=== PATIENT | female | born 1955 | race Caucasian/White ===

== ENCOUNTER 2016-12-23 11:38 | Outpatient (CLI) | payer OTHER | END 2016-12-23 11:39 | disposition home or self-care (01) | DRG 554 | LOC: CONVCARE 11:38 | PROVIDERS: ATTEND Orthopaedic Surgery | DX: M16.11 Unilateral primary osteoarthritis, right hip (principal) | CPT/HCPCS: 72170; 73501 ==

== ENCOUNTER 2017-01-13 05:25 | Inpatient (IN) | payer OTHER ==
[2017-01-13] MEDS ORDERED: LACTATED RINGERS 1,000 ML IV ONE (06:00)
[2017-01-13] MEDS ORDERED: SCOPOLAMINE 1.5MG PATCH TD SCH (06:00)
[2017-01-13] MEDS ORDERED: LACTATED RINGERS 1,000 ML IV SCH (07:00)
[2017-01-13] MEDS ORDERED: SODIUM CHLORIDE 20 ML 40 ML ONE (07:23)
[2017-01-13] MEDS ORDERED: BUPIVACAINE LIPOSOME 20 ML SUS ONE (07:23)
[2017-01-13] MEDS ORDERED: BUPIVACAINE HCL 0.25% MPF 10 ML SOL INFIL ONE (07:23)
[2017-01-13] MEDS ORDERED: DEXAMETHASONE 20 MG/5 ML (4 MG/ML SOL) ONE (07:26)
[2017-01-13] MEDS ORDERED: ONDANSETRON HCL 4 MG/2 ML SOL ONE (07:26)
[2017-01-13] MEDS ORDERED: PROPOFOL 500 MG/50 ML EMU IV ONE (07:26)
[2017-01-13] MEDS ORDERED: LIDOCAINE HCL 1% MPF SOL ONE (07:26)
[2017-01-13] MEDS ORDERED: MIDAZOLAM 2 MG/2 ML SOL ONE (07:27)
[2017-01-13] MEDS ORDERED: FENTANYL 100MCG/2ML SOL ONE (07:27)
[2017-01-13] MEDS ORDERED: KETAMINE HYDROCHLORIDE 50 MG/ML SOL ONE (07:27)
[2017-01-13] MEDS ORDERED: MORPHINE SULFATE 0.5 MG/ML SOL ONE (07:28)
[2017-01-13] MEDS ORDERED: CEFAZOLIN SODIUM 1 GM PDS ONE (07:35)
[2017-01-13] MEDS ORDERED: TRANEXAMIC ACID 100 MG/ML SOL ONE (07:57)
[2017-01-13] MEDS ORDERED: METOCLOPRAMIDE HYDROCHLORIDE 5 MG/ML SOL ONE (08:34)
[2017-01-13] MEDS ORDERED: EPHEDRINE SULFATE 50 MG/ML SOL ONE (08:52)
[2017-01-13] MEDS ORDERED: PROPOFOL 10 MG/ML EMU IV ONE ×3 (09:27→10:37)
[2017-01-13] MEDS ORDERED: PATIENT EDUCATION 1 MISC PRN (12:20)
[2017-01-13] MEDS ORDERED: ONDANSETRON HCL 4 MG/2 ML SOL IV PRN (13:34)
[2017-01-13] MEDS ORDERED: DIAZEPAM 5 MG TAB PO PRN (13:34)
[2017-01-13] MEDS ORDERED: ALUMINUM/MAGNESIUM 30 ML SUS PO PRN (13:34)
[2017-01-13] MEDS ORDERED: SODIUM CHLORIDE 0.9% 500 ML 500 ML IV PRN (13:34)
[2017-01-13] MEDS ORDERED: ONDANSETRON 4 MG ODT BU PRN (13:34)
[2017-01-13] MEDS ORDERED: FLEET ENEMA PR PRN (13:34)
[2017-01-13] MEDS ORDERED: ZOLPIDEM TARTRATE 5 MG TAB PO PRN (13:34)
[2017-01-13] MEDS ORDERED: MAGNESIUM HYDROXIDE 30 ML SUS PO PRN (13:34)
[2017-01-13] MEDS ORDERED: BISACODYL 10 MG SUP PR PRN (13:34)
[2017-01-13] MEDS ORDERED: DEXTROSE/SALINE 0.45/KCL 20MEQ 1,000 ML/1,000 ML SOL IV ONE (13:59)
[2017-01-13] MEDS ORDERED: HYDROMORPHONE 1 MG/ML SYRINGE IV PRN (14:00)
[2017-01-13] MEDS: DEXTROSE/SALINE 0.45/KCL 20MEQ 1,000 ML/1,000 ML SOL IV SCH (14:08)
[2017-01-13] MEDS: SODIUM CHLORIDE 0.9% FLUSH 10 ML SOL IV SCH ×2 (15:11→23:08)
[2017-01-13] MEDS: CEFAZOLIN (PREMIX) 1 GM 1 GM/50 ML SOL IV SCH (18:12)
[2017-01-13] MEDS: ACETAMINOPHEN 325 MG PO PRN ×2 (18:50→23:41)
[2017-01-13] MEDS: GABAPENTIN 300 MG CAP PO SCH (20:56)
[2017-01-13] MEDS: SENNOSIDES A AND B 8.6 MG TAB PO SCH (20:56)
[2017-01-14] MEDS: DEXTROSE/SALINE 0.45/KCL 20MEQ 1,000 ML/1,000 ML SOL IV SCH (01:02)
[2017-01-14] MEDS: CEFAZOLIN (PREMIX) 1 GM 1 GM/50 ML SOL IV SCH (01:07)
[2017-01-14] MEDS: SODIUM CHLORIDE 0.9% FLUSH 10 ML SOL IV SCH ×4 (05:13→22:27)
[2017-01-14] MEDS: LEVOTHYROXINE SODIUM 112 MCG TAB PO SCH (06:13)
[2017-01-14] MEDS: ACETAMINOPHEN 325 MG PO PRN (06:13)
[2017-01-14 07:24] LABS: MEAN CORPUSCULAR HGB CONC 34.4 gm/dl (32.0-36.0)
[2017-01-14] MEDS: GABAPENTIN 300 MG CAP PO SCH ×2 (08:53→20:43)
[2017-01-14] MEDS: RIVAROXABAN 10 MG TAB PO SCH (08:53)
[2017-01-14] MEDS: FERROUS SULFATE 325 MG TAB PO SCH (08:55)
[2017-01-14] MEDS: ACETAMINOPHEN 500 MG 500 MG TAB PO PRN ×2 (14:45→20:43)
[2017-01-14] MEDS: APAP/OXYCODONE 325/5 TAB PO PRN (15:16)
[2017-01-14 20:01] VITALS: O2SAT 95
[2017-01-14] MEDS: SENNOSIDES A AND B 8.6 MG TAB PO SCH (20:43)
[2017-01-15] MEDS: APAP/OXYCODONE 325/5 TAB PO PRN ×3 (00:12→15:54)
[2017-01-15] MEDS: SODIUM CHLORIDE 0.9% FLUSH 10 ML SOL IV SCH ×2 (06:14→14:25)
[2017-01-15] MEDS: LEVOTHYROXINE SODIUM 112 MCG TAB PO SCH (06:15)
[2017-01-15] MEDS: RIVAROXABAN 10 MG TAB PO SCH (09:16)
[2017-01-15] MEDS: GABAPENTIN 300 MG CAP PO SCH (09:16)
[2017-01-15] MEDS: FERROUS SULFATE 325 MG TAB PO SCH (09:27)
[2017-01-15] MEDS: ACETAMINOPHEN 500 MG 500 MG TAB PO PRN (09:30)
[2017-01-15 12:36] VITALS: BP 121/73; PULSE 84; RESP 18; TEMP 98.2
== END 2017-01-15 19:15 | disposition home or self-care (01) | DRG 470 ==
LOC: ACUTE CARE 05:25
PROVIDERS: ADMIT Orthopaedic Surgery; ATTEND Orthopaedic Surgery
PROC: F01ZDFZ Gait and/or Balance Assessment using Assistive, Adaptive, Supportive or Protective Equipment (ICD-10-PCS; 2017-01-13)
PROC: F01ZBZZ Bed Mobility Assessment (ICD-10-PCS; 2017-01-13)
PROC: F01ZCZZ Transfer Assessment (ICD-10-PCS; 2017-01-13)
PROC: 0SR904A Replacement of Right Hip Joint with Ceramic on Polyethylene Synthetic Substitute, Uncemented, Open Approach (ICD-10-PCS; principal; 2017-01-13 08:00)
PROC: F02Z3ZZ Grooming/Personal Hygiene Assessment (ICD-10-PCS; 2017-01-14)
PROC: F02Z1ZZ Dressing Assessment (ICD-10-PCS; 2017-01-14)
PROC: F02Z0ZZ Bathing/Showering Assessment (ICD-10-PCS; 2017-01-14)
DX: M16.11 Unilateral primary osteoarthritis, right hip (principal); Z96.641 Presence of right artificial hip joint; E03.9 Hypothyroidism, unspecified
CPT/HCPCS: 36415; 73501; 73502; 85027; 85049; 94150; 99070; J0690; J1100; J2250; J2274; J2405; J2765; J3010; J2001; J2704

== ENCOUNTER 2017-02-27 11:29 | Outpatient (CLI) | payer OTHER | END 2017-02-27 11:30 | disposition home or self-care (01) | DRG 561 | LOC: CONVCARE 11:29 | PROVIDERS: ATTEND Orthopaedic Surgery | DX: Z47.1 Aftercare following joint replacement surgery (principal); Z96.641 Presence of right artificial hip joint | CPT/HCPCS: 73502 ==